=== PATIENT | male | born 1970 | race Caucasian/White ===

== ENCOUNTER → 2018-05-23 | Outpatient (CLI) | payer OTHER ==
--- NOTE | 2018-05-23 10:28 | KCIC ---
MR of the right shoulder HISTORY: Right shoulder pain for 2 1/2-3 years, pain after sleeping. TECHNIQUE: Routine multiplanar sequences are obtained. Note that the larger flex coil had to be used with some loss of detail. FINDINGS: The acromioclavicular joint is mildly degenerative. No evidence of a rotator cuff tear. No significant subdeltoid bursal effusion. No significant glenohumeral joint effusion. No labral tear or para labral cyst. No acute articular cartilage defect or advanced primary osteoarthritis Biceps tendon is intact Subcortical cystic change at the posterior greater tuberosity. No aggressive bone destruction or acute fracture. No acute soft tissue abnormality IMPRESSION: 1. No rotator cuff tear or other internal derangement. 2. Subcortical cysts at the posterior greater tuberosity, likely of no clinical significance. Occasionally this finding can be associated with internal impingement, if the patient is at risk. Electronically signed by: Randall Pal MD (05/23/2018 10:25 AM) [id number]
== END | disposition home or self-care (01) ==
LOC: KCIC MRI 07:38
PROVIDERS: ATTEND Family Medicine
DX: M85.611 Other cyst of bone, right shoulder (principal)
CPT/HCPCS: 73221